=== PATIENT | female | born 1980 | race Caucasian/White ===

== ENCOUNTER → 2021-07-13 | Outpatient (CLI) | payer OTHER ==
[2021-07-13 15:32] LABS: CHOL/HDL RATIO 2.5; Cholesterol 209 mg/dL (50-200); HDL Cholesterol 83 mg/dL (>39); LDL/HDL RATIO 1.4; Low Density Lipoprotein Chol 117 mg/dL (0-110); Triglycerides 47 mg/dL (30-160); Very Low Density Lipoprot Chol 9 mg/dL (6-32)
[2021-07-14 07:11] LABS: BASOS 1 % (Not Estab.); EOS 3 % (Not Estab.); EOS (ABSOLUTE) 0.2 x10E3/uL (0.0-0.4); HEMATOCRIT 42.1 % (34.0-46.6); HEMOGLOBIN 14.3 g/dL (11.1-15.9); IMMATURE GRANULOCYTES 1 % (Not Estab.); LYMPHS 20 % (Not Estab.); LYMPHS (ABSOLUTE) 1.3 x10E3/uL (0.7-3.1); MCH 30.6 pg (26.6-33.0); MCV 90 fL (79-97); MONOCYTES 6 % (Not Estab.); MONOCYTES(ABSOLUTE) 0.4 x10E3/uL (0.1-0.9); NEUTROPHILS 69 % (Not Estab.); NEUTROPHILS (ABSOLUTE) 4.5 x10E3/uL (1.4-7.0); PLATELETS 265 x10E3/uL (150-450); RBC 4.68 x10E6/uL (3.77-5.28); WBC 6.5 x10E3/uL (3.4-10.8)
[2021-07-14 08:11] LABS: BILIRUBIN, TOTAL 0.7 mg/dL (0.0-1.2); CALCIUM, SERUM 9.3 mg/dL (8.7-10.2); CREATININE, SERUM 0.73 mg/dL (0.57-1.00); GLOBULIN, TOTAL 2.3 g/dL (1.5-4.5); POTASSIUM, SERUM 4.6 mmol/L (3.5-5.2); PROTEIN, TOTAL, SERUM 6.8 g/dL (6.0-8.5)
== END | disposition home or self-care (01) ==
LOC: LAB SHORT 13:15 → LAB 13:15
PROVIDERS: Student in an Organized Health Care Education/Training Program
DX: Z13.6 Encounter for screening for cardiovascular disorders (principal); F41.3 Other mixed anxiety disorders; F32.A Depression, unspecified
CPT/HCPCS: 80053; 80061; 85025

== ENCOUNTER → 2022-03-15 | Outpatient (CLI) | payer OTHER | END | disposition home or self-care (01) | LOC: PLD 14:18 → LAB SHORT 14:18 | DX: N39.0 Urinary tract infection, site not specified (principal) | CPT/HCPCS: 87077; 87086; 87186 ==

== ENCOUNTER 2023-04-21 09:15 | Emergency (ER) | payer OTHER ==
[~2023-04-21] VITALS: Ht 165.1 cm; Wt 63.0 kg
[2023-04-21 10:23] VITALS: BP 126/66
[2023-04-21] MEDS ORDERED: Norco 5-325 Ta1 EACH PO (11:45)
== END 2023-04-21 11:55 | disposition home or self-care (01) ==
LOC: ER 09:15
DX: S09.90XA Unspecified injury of head, initial encounter (principal); W22.8XXA Striking against or struck by other objects, initial encounter
CPT/HCPCS: 70450; 99283-25; A9270